=== PATIENT | female | born 1945 | race African-American/Black ===

== ENCOUNTER 2017-12-19 22:17 | Inpatient (IN) ==
[2017-12-19] MEDS ORDERED: PROPOFOL 1,000 MG/100 ML BOTTLE IV ONE (22:33)
[2017-12-19] MEDS ORDERED: FUROSEMIDE 100 MG/10 ML VIAL ONE (22:34)
[2017-12-19] MEDS ORDERED: FUROSEMIDE 100 MG/10 ML VIAL IV STA (22:37)
[2017-12-19] MEDS ORDERED: methylPREDNISolone SOD SUC 125 MG/2 ML VIAL IV STA (22:37)
[2017-12-19] MEDS ORDERED: MORPHINE 4 MG/1 ML VIAL IV STA (22:37)
[2017-12-19] MEDS ORDERED: ONDANSETRON 4 MG/2 ML VIAL IV STA (22:37)
[2017-12-19] MEDS ORDERED: NITROGLYCERIN 2% OINT 1 INCH/GM PACK TOP STA (22:37)
[2017-12-19] MEDS ORDERED: ALBUTEROL/IPRATROPIUM 3 ML NEB RESP TX STA (22:46)
[2017-12-19] MEDS ORDERED: ETOMIDATE 20 MG/10 ML VIAL IV ONE (22:54)
[2017-12-19] MEDS ORDERED: VECURONIUM 10 MG VIAL IV ONE (22:54)
[2017-12-19 23:00] LABS: ABG Base Excess -7.1 MMOL/L (-2.5-2.5); ABG HCO3 18.6 MMOL/L (20-26); ABG Oxygen Saturation 99.2 % (95-100); ABG PCO2 39.1 MM HG (35-48); ABG PH 7.293 (7.35-7.45); ABG TCO2 17.4 MMOL/L (23-27)
[2017-12-19] MEDS ORDERED: ALBUTEROL 2.5 MG/3 ML NEB RESP TX SCH (23:00)
[2017-12-19 23:09] LABS: Basophils % 0.2 % (0.0-0.8); Eosinophils % 0.2 % (0.00-10.9); Hematocrit 32.9 VOL% (35.7-47.0); Hemoglobin 10.2 GM/DL (12.0-16.0); Immature Granulocytes % 1.3 %; Immature Granulocytes Absolute 0.22 #; Lymphocytes # 0.8 10*3/uL (1.4-4.0); Lymphocytes % 4.6 % (21.3-54.2); Mean Corpuscular Hemoglobin 27 PG (27-34); Mean Platelet Volume 11.3 FL (9.6-12.0); Monocytes # 0.8 10*3/uL (0.11-0.8); Monocytes % 4.3 % (1.7-12.7); NRBC # 0.02 10*3/uL; Neutrophils # 15.4 10*3/uL (1.4-7.4); Neutrophils % 89.4 % (38.7-73.9); Platelet Count 224 T/CUMM (130-400); Red Blood Count 3.74 MC/CUMM (3.8-5.5); Red Cell Distribution Width 14.2 % (9.3-17.3); White Blood Count 17.3 T/CUMM (4-12)
[2017-12-19 23:17] LABS: PT Patient Result 10.5 SECS
[2017-12-19 23:24] LABS: Albumin 3.2 G/DL (3.4-5.0); Bilirubin,Total 0.7 MG/DL (0.2-1.0); Osmolality,Calculated 289.4 MOS/KG (273-304); Potassium 3.4 MMOL/L (3.5-5.1); Total Protein 6.9 G/DL (6.4-8.3)
[2017-12-19] MEDS ORDERED: cefTRIAXone 1,000 MG in SODIUM CHLORIDE 0.9% 100 ML IV STA (23:25)
[2017-12-19] MEDS ORDERED: ACETYLCYSTEINE 600 MG CAPSULE PO STA (23:36)
[2017-12-19] MEDS ORDERED: SODIUM BICARBONATE 50 MEQ/50 ML VIAL IV STA (23:36)
[2017-12-19 23:51] LABS: Lactic Acid 3.7 MMOL/L (0.4-2.0)
[2017-12-19 23:52] LABS: Apearance,Urine Slightly Hazy (Clear); Barbiturates Screen,Urine Negative (Negative); Benzodiazepines Screen,Urine Negative (Negative); Bilirubin,Urine Negative (Negative); Blood, Urine Negative (Negative); Cannabinoid Screen,Urine Negative (Negative); Glucose,Urine (UA) >=500 mg/dL (Negative); Granular Casts,Urine 18 /LPF (0-1); Ketones,Urine Negative (Negative); Nitrite,Urine Negative (Negative); Opiate Screen,Urine Negative (Negative); Phencyclidine Screen,Urine Negative (Negative); Protein,Urine >=500 MG/DL; RBC,Urine 7 /HPF (0-4); Squamous Epithelial Cell,Urine Occasional /HPF (0-10); Urine Color Yellow (Yellow); Urine Urobilinogen < 2.0 EU/DL (0.2-1.0); WBC,Urine 37 /HPF (0-6)
[2017-12-20] MEDS ORDERED: ENOXAPARIN 100 MG/ML SYRINGE SUBCUT STA (01:04)
[2017-12-20] MEDS ORDERED: NITROGLYCERIN 2% OINT 1 INCH/GM PACK TOP ONE (01:57)
[2017-12-20] MEDS: PIPERACILLIN/TAZOBACTAM 3,375 MG in SODIUM CHLORIDE 0.9% 100 ML IV SCH ×3 (02:12→17:09)
[2017-12-20] MEDS ORDERED: ONDANSETRON 4 MG/2 ML VIAL IV PRN (02:22)
[2017-12-20] MEDS ORDERED: ALBUTEROL 2.5 MG/3 ML NEB RESP TX PRN (02:22)
[2017-12-20] MEDS ORDERED: MORPHINE 4 MG/1 ML VIAL IV PRN (02:22)
[2017-12-20 02:24] LABS: Band Neutrophils 13 % (0-10); Lymphocytes 5 % (20-55); Platelet Estimate Normal; Polychromasia Few; Segmented Neutrophils 78 % (50-85); Total Cells Counted 100
[2017-12-20] MEDS ORDERED: VANCOMYCIN 1,000 MG VIAL ONE (02:39)
[2017-12-20] MEDS: VANCOMYCIN INJ 1,000 MG in SODIUM CHLORIDE 0.9% 250 ML IV SCH (03:02)
[2017-12-20] MEDS: PROPOFOL 1,000 MG/100 ML BOTTLE IV SCH ×3 (04:21→18:55)
[2017-12-20] MEDS: LEVOFLOXACIN INJ 750 MG in PREMIX 1 EACH IV SCH (04:30)
[2017-12-20] MEDS: ALBUTEROL/IPRATROPIUM 3 ML NEB RESP TX SCH ×3 (07:28→21:16)
[2017-12-20 08:00] LABS: Albumin 3.1 G/DL (3.4-5.0); Bilirubin,Total 0.7 MG/DL (0.2-1.0); Calcium 7.9 MG/DL (8.5-10.1); Osmolality,Calculated 285.4 MOS/KG (273-304); Potassium 3.6 MMOL/L (3.5-5.1); Total Protein 7.1 G/DL (6.4-8.3)
[2017-12-20] MEDS ORDERED: PIPERACILLIN/TAZOBACTAM 3,375 MG in SODIUM CHLORIDE 0.9% 100 ML IV SCH (08:30)
[2017-12-20 08:31] LABS: ABG Base Excess -0.1 MMOL/L (-2.5-2.5); ABG HCO3 24.3 MMOL/L (20-26); ABG Oxygen Saturation 99.4 % (95-100); ABG PCO2 30.1 MM HG (35-48); ABG PH 7.482 (7.35-7.45); ABG TCO2 20.1 MMOL/L (23-27)
[2017-12-20] MEDS: FUROSEMIDE 40 MG/4 ML VIAL IV SCH (09:34)
[2017-12-20] MEDS: PANTOPRAZOLE 40 MG VIAL IV SCH (09:34)
[2017-12-20] MEDS ORDERED: DEXTROSE 50% 25 GM/50 ML VIAL IV PRN (11:46)
[2017-12-20] MEDS ORDERED: GLUCAGON 1 MG VIAL IM PRN (11:46)
[2017-12-20 12:11] LABS: Eosinophils,Pleural Fluid 1 %; Lymphocytes,Pleural Fluid 31 %; Monocytes,Pleural Fluid 6 %; Neutrophils,Pleural Fluid 62 %
[2017-12-20 12:14] LABS: RBC,Pleural Fluid 259 T/CUMM
[2017-12-20] MEDS: INSULIN REGULAR 100 UNIT/ML SUBCUT SCH ×2 (12:19→18:08)
[2017-12-20] MEDS: ENOXAPARIN 40 MG/0.4 ML SYRINGE SUBCUT SCH (12:20)
[2017-12-20 13:10] LABS: Calcium 8.3 MG/DL (8.5-10.1); Osmolality,Calculated 285.4 MOS/KG (273-304); Potassium 4.2 MMOL/L (3.5-5.1)
[2017-12-20 14:06] LABS: Basophils % 0.1 % (0.0-0.8); Hematocrit 34.7 VOL% (35.7-47.0); Hemoglobin 11.3 GM/DL (12.0-16.0); Immature Granulocytes % 0.4 %; Immature Granulocytes Absolute 0.06 #; Lymphocytes % 6.8 % (21.3-54.2); Mean Corpuscular HGB Conc 32.6 GM/DL (32-36); Mean Corpuscular Hemoglobin 28 PG (27-34); Mean Corpuscular Volume 84.8 FL (87-102); Mean Platelet Volume 11.4 FL (9.6-12.0); Monocytes # 0.4 10*3/uL (0.11-0.8); Monocytes % 2.6 % (1.7-12.7); Neutrophils # 12.7 10*3/uL (1.4-7.4); Neutrophils % 90.1 % (38.7-73.9); Platelet Count 222 T/CUMM (130-400); Red Blood Count 4.09 MC/CUMM (3.8-5.5); Red Cell Distribution Width 14.1 % (9.3-17.3)
[2017-12-20] MEDS: POTASSIUM CHLORIDE RIDER 10 MEQ in PREMIX 1 EACH IV PRN ×2 (14:11→15:14)
[2017-12-20] MEDS: BIMATOPROST 0.01% OPH SOLN 2.5 ML BOTTLE BOTH EYES SCH (20:20)
[2017-12-21] MEDS: VANCOMYCIN INJ 1,000 MG in SODIUM CHLORIDE 0.9% 250 ML IV SCH ×2 (00:49→23:15)
[2017-12-21] MEDS: PROPOFOL 1,000 MG/100 ML BOTTLE IV SCH ×2 (00:50→07:00)
[2017-12-21] MEDS: ALBUTEROL/IPRATROPIUM 3 ML NEB RESP TX SCH ×4 (01:00→14:52)
[2017-12-21] MEDS: INSULIN REGULAR 100 UNIT/ML SUBCUT SCH ×5 (01:05→23:55)
[2017-12-21] MEDS: PIPERACILLIN/TAZOBACTAM 3,375 MG in SODIUM CHLORIDE 0.9% 100 ML IV SCH ×3 (01:50→17:24)
[2017-12-21 04:23] LABS: Basophils % 0.1 % (0.0-0.8); Hematocrit 28.4 VOL% (35.7-47.0); Hemoglobin 9.1 GM/DL (12.0-16.0); Immature Granulocytes % 0.6 %; Immature Granulocytes Absolute 0.07 #; Lymphocytes # 1.8 10*3/uL (1.4-4.0); Lymphocytes % 15.1 % (21.3-54.2); Mean Corpuscular Hemoglobin 27 PG (27-34); Mean Corpuscular Volume 84.5 FL (87-102); Monocytes # 0.7 10*3/uL (0.11-0.8); Monocytes % 6.1 % (1.7-12.7); Neutrophils # 9.1 10*3/uL (1.4-7.4); Neutrophils % 78.1 % (38.7-73.9); Platelet Count 200 T/CUMM (130-400); Red Blood Count 3.36 MC/CUMM (3.8-5.5); Red Cell Distribution Width 14.5 % (9.3-17.3); White Blood Count 11.7 T/CUMM (4-12)
[2017-12-21 04:35] LABS: ABG Base Excess 0.2 MMOL/L (-2.5-2.5); ABG HCO3 24.6 MMOL/L (20-26); ABG Oxygen Saturation 99.5 % (95-100); ABG PCO2 35.6 MM HG (35-48); ABG PH 7.438 (7.35-7.45); ABG TCO2 21.9 MMOL/L (23-27)
[2017-12-21 05:27] LABS: Calcium 7.6 MG/DL (8.5-10.1); Osmolality,Calculated 297.6 MOS/KG (273-304); Potassium 3.3 MMOL/L (3.5-5.1)
[2017-12-21 06:12] LABS: Prealbumin 12.4 MG/DL (20-40)
[2017-12-21] MEDS: POTASSIUM CHLORIDE 20 MEQ/15 ML UDCUP PER TUBE PRN ×3 (06:19→10:55)
[2017-12-21] MEDS: ENOXAPARIN 40 MG/0.4 ML SYRINGE SUBCUT SCH (08:20)
[2017-12-21] MEDS: FUROSEMIDE 40 MG/4 ML VIAL IV SCH (08:22)
[2017-12-21] MEDS: PANTOPRAZOLE 40 MG VIAL IV SCH (08:27)
[2017-12-21 08:53] LABS: ABG Base Excess 1.4 MMOL/L (-2.5-2.5); ABG HCO3 25.1 MMOL/L (20-26); ABG Oxygen Saturation 97.9 % (95-100); ABG PCO2 36.2 MM HG (35-48); ABG PH 7.458 (7.35-7.45); ABG PO2 116.7 MM HG (80-95); ABG TCO2 26.2 MMOL/L (23-27)
[2017-12-21 11:12] LABS: ABG Base Excess 2.9 MMOL/L (-2.5-2.5); ABG Oxygen Saturation 96.5 % (95-100); ABG PCO2 38.6 MM HG (35-48); ABG PH 7.452 (7.35-7.45); ABG PO2 85.5 MM HG (80-95); Allen Test Positive
[2017-12-21] MEDS ORDERED: BISACODYL 5 MG TABLET PO PRN (15:44)
[2017-12-21] MEDS ORDERED: ATENOLOL 50 MG TABLET PO ONE (16:36)
[2017-12-21] MEDS: BIMATOPROST 0.01% OPH SOLN 2.5 ML BOTTLE BOTH EYES SCH (21:05)
[2017-12-21] MEDS: hydrALAZINE 25 MG TABLET PO SCH (21:05)
[2017-12-21] MEDS: LOVASTATIN 20 MG TABLET PO SCH (21:06)
[2017-12-21] MEDS: NEBIVOLOL 5 MG TABLET PO SCH (21:06)
[2017-12-22] MEDS: ALBUTEROL/IPRATROPIUM 3 ML NEB RESP TX SCH ×4 (00:11→19:43)
[2017-12-22] MEDS: PIPERACILLIN/TAZOBACTAM 3,375 MG in SODIUM CHLORIDE 0.9% 100 ML IV SCH ×3 (01:00→16:20)
[2017-12-22 04:28] LABS: Calcium 8.7 MG/DL (8.5-10.1); Potassium 4.4 MMOL/L (3.5-5.1)
[2017-12-22] MEDS: PROPOFOL 1,000 MG/100 ML BOTTLE IV SCH (05:12)
[2017-12-22] MEDS: LEVOFLOXACIN INJ 750 MG in PREMIX 1 EACH IV SCH (05:13)
[2017-12-22] MEDS: INSULIN REGULAR 100 UNIT/ML SUBCUT SCH ×5 (05:15→20:47)
[2017-12-22 05:40] LABS: Basophils % 0.3 % (0.0-0.8); Eosinophils # 0.2 10*3/uL (0.0-0.87); Eosinophils % 1.2 % (0.00-10.9); Hemoglobin 10.8 GM/DL (12.0-16.0); Immature Granulocytes % 0.6 %; Immature Granulocytes Absolute 0.08 #; Lymphocytes # 2.4 10*3/uL (1.4-4.0); Lymphocytes % 17.3 % (21.3-54.2); Mean Corpuscular HGB Conc 31.8 GM/DL (32-36); Mean Corpuscular Hemoglobin 27 PG (27-34); Mean Corpuscular Volume 85.9 FL (87-102); Mean Platelet Volume 11.3 FL (9.6-12.0); Monocytes % 7.5 % (1.7-12.7); Neutrophils # 10.1 10*3/uL (1.4-7.4); Neutrophils % 73.1 % (38.7-73.9); Platelet Count 262 T/CUMM (130-400); Red Blood Count 3.96 MC/CUMM (3.8-5.5); Red Cell Distribution Width 14.7 % (9.3-17.3); White Blood Count 13.8 T/CUMM (4-12)
[2017-12-22] MEDS ORDERED: ATENOLOL 50 MG TABLET PO SCH (09:00)
[2017-12-22] MEDS: ASPIRIN EC 81 MG TABLET PO SCH (09:47)
[2017-12-22] MEDS: hydrALAZINE 25 MG TABLET PO SCH ×3 (09:47→20:46)
[2017-12-22] MEDS: MULTIVITAMIN (CENTRUM) TABLET PO SCH (09:47)
[2017-12-22] MEDS: NEBIVOLOL 5 MG TABLET PO SCH (09:47)
[2017-12-22] MEDS: PANTOPRAZOLE 40 MG VIAL IV SCH (09:48)
[2017-12-22] MEDS: FUROSEMIDE 40 MG/4 ML VIAL IV SCH ×2 (09:52→15:10)
[2017-12-22] MEDS: ENOXAPARIN 40 MG/0.4 ML SYRINGE SUBCUT SCH (09:54)
[2017-12-22] MEDS: BIMATOPROST 0.01% OPH SOLN 2.5 ML BOTTLE BOTH EYES SCH (20:47)
[2017-12-22] MEDS: NEBIVOLOL 10 MG TABLET PO SCH (20:47)
[2017-12-22] MEDS: LOVASTATIN 20 MG TABLET PO SCH (20:47)
[2017-12-22] MEDS: amLODIPine 2.5 MG TABLET PO SCH (20:47)
[2017-12-22] MEDS ORDERED: BENZOCAINE/MENTHOL LOZENGE 18/BOX PO PRN (21:17)
[2017-12-23] MEDS: VANCOMYCIN INJ 1,000 MG in SODIUM CHLORIDE 0.9% 250 ML IV SCH (00:27)
[2017-12-23] MEDS: PIPERACILLIN/TAZOBACTAM 3,375 MG in SODIUM CHLORIDE 0.9% 100 ML IV SCH (00:28)
[2017-12-23] MEDS: ALBUTEROL/IPRATROPIUM 3 ML NEB RESP TX SCH ×5 (00:39→23:55)
[2017-12-23 04:17] LABS: Basophils % 0.2 % (0.0-0.8); Eosinophils # 0.2 10*3/uL (0.0-0.87); Eosinophils % 1.8 % (0.00-10.9); Hematocrit 37.1 VOL% (35.7-47.0); Hemoglobin 11.8 GM/DL (12.0-16.0); Immature Granulocytes % 0.6 %; Immature Granulocytes Absolute 0.07 #; Lymphocytes # 2.7 10*3/uL (1.4-4.0); Lymphocytes % 21.5 % (21.3-54.2); Mean Corpuscular HGB Conc 31.8 GM/DL (32-36); Mean Corpuscular Hemoglobin 27 PG (27-34); Mean Corpuscular Volume 85.3 FL (87-102); Mean Platelet Volume 11.2 FL (9.6-12.0); NRBC # 0.02 10*3/uL; Neutrophils # 8.4 10*3/uL (1.4-7.4); Neutrophils % 67.9 % (38.7-73.9); Platelet Count 318 T/CUMM (130-400); Red Blood Count 4.35 MC/CUMM (3.8-5.5); Red Cell Distribution Width 14.3 % (9.3-17.3); White Blood Count 12.4 T/CUMM (4-12)
[2017-12-23 04:40] LABS: Calcium 8.7 MG/DL (8.5-10.1); Osmolality,Calculated 282.4 MOS/KG (273-304); Potassium 3.7 MMOL/L (3.5-5.1)
[2017-12-23] MEDS: PROPOFOL 1,000 MG/100 ML BOTTLE IV SCH (07:01)
[2017-12-23] MEDS: guaiFENesin/DM ER 600-30 MG TABLET PO SCH ×2 (08:40→21:00)
[2017-12-23] MEDS: NEBIVOLOL 10 MG TABLET PO SCH ×2 (08:40→21:00)
[2017-12-23] MEDS: MULTIVITAMIN (CENTRUM) TABLET PO SCH (08:40)
[2017-12-23] MEDS: amLODIPine 2.5 MG TABLET PO SCH ×2 (08:41→21:00)
[2017-12-23] MEDS: ENOXAPARIN 40 MG/0.4 ML SYRINGE SUBCUT SCH (08:41)
[2017-12-23] MEDS: FUROSEMIDE 40 MG/4 ML VIAL IV SCH ×2 (08:41→15:05)
[2017-12-23] MEDS: ASPIRIN EC 81 MG TABLET PO SCH (08:41)
[2017-12-23] MEDS: hydrALAZINE 25 MG TABLET PO SCH ×3 (08:41→21:00)
[2017-12-23] MEDS: PANTOPRAZOLE 40 MG TABLET PO SCH (08:51)
[2017-12-23] MEDS: LEVOFLOXACIN 500 MG TABLET PO SCH (08:51)
[2017-12-23] MEDS: INSULIN REGULAR 100 UNIT/ML SUBCUT SCH ×4 (08:56→21:00)
[2017-12-23] MEDS: LOVASTATIN 20 MG TABLET PO SCH (21:00)
[2017-12-23] MEDS: BIMATOPROST 0.01% OPH SOLN 2.5 ML BOTTLE BOTH EYES SCH (21:01)
[2017-12-24] MEDS: ALBUTEROL/IPRATROPIUM 3 ML NEB RESP TX SCH ×3 (07:44→20:13)
[2017-12-24] MEDS: LEVOFLOXACIN 500 MG TABLET PO SCH (08:24)
[2017-12-24] MEDS: amLODIPine 2.5 MG TABLET PO SCH ×2 (08:24→20:41)
[2017-12-24] MEDS: ASPIRIN EC 81 MG TABLET PO SCH (08:24)
[2017-12-24] MEDS: guaiFENesin/DM ER 600-30 MG TABLET PO SCH ×2 (08:24→20:40)
[2017-12-24] MEDS: PANTOPRAZOLE 40 MG TABLET PO SCH (08:24)
[2017-12-24] MEDS: hydrALAZINE 25 MG TABLET PO SCH ×3 (08:24→20:41)
[2017-12-24] MEDS: MULTIVITAMIN (CENTRUM) TABLET PO SCH (08:25)
[2017-12-24] MEDS: INSULIN REGULAR 100 UNIT/ML SUBCUT SCH ×4 (08:25→20:41)
[2017-12-24] MEDS: FUROSEMIDE 40 MG/4 ML VIAL IV SCH ×2 (08:25→15:41)
[2017-12-24] MEDS: NEBIVOLOL 10 MG TABLET PO SCH ×2 (08:25→20:41)
[2017-12-24] MEDS: ENOXAPARIN 40 MG/0.4 ML SYRINGE SUBCUT SCH (08:29)
[2017-12-24] MEDS: BIMATOPROST 0.01% OPH SOLN 2.5 ML BOTTLE BOTH EYES SCH (20:41)
[2017-12-24] MEDS: LOVASTATIN 20 MG TABLET PO SCH (20:41)
[2017-12-25] MEDS: ALBUTEROL/IPRATROPIUM 3 ML NEB RESP TX SCH ×3 (00:14→13:55)
[2017-12-25] MEDS: INSULIN REGULAR 100 UNIT/ML SUBCUT SCH ×2 (08:22→12:10)
[2017-12-25] MEDS: MULTIVITAMIN (CENTRUM) TABLET PO SCH (08:23)
[2017-12-25] MEDS: hydrALAZINE 25 MG TABLET PO SCH ×2 (08:23→14:57)
[2017-12-25] MEDS: LEVOFLOXACIN 500 MG TABLET PO SCH (08:23)
[2017-12-25] MEDS: ASPIRIN EC 81 MG TABLET PO SCH (08:23)
[2017-12-25] MEDS: guaiFENesin/DM ER 600-30 MG TABLET PO SCH (08:23)
[2017-12-25] MEDS: NEBIVOLOL 10 MG TABLET PO SCH (08:23)
[2017-12-25] MEDS: PANTOPRAZOLE 40 MG TABLET PO SCH (08:24)
[2017-12-25] MEDS: ENOXAPARIN 40 MG/0.4 ML SYRINGE SUBCUT SCH (08:24)
[2017-12-25] MEDS: amLODIPine 2.5 MG TABLET PO SCH (08:24)
[2017-12-25] MEDS: FUROSEMIDE 40 MG/4 ML VIAL IV SCH ×2 (08:24→14:59)
[2017-12-25 11:39] VITALS: BP 137/65
== END 2017-12-25 15:53 | disposition home or self-care (01) | DRG 208 ==
LOC: EDUNIT# → N.ED 22:17 → SUATTDRO 12-20 02:22 → N.EDINP 12-20 02:22 → N.CC 12-20 03:04 → N.TELEN 12-22 22:20
PROVIDERS: ADMIT Internal Medicine; ATTEND Internal Medicine

== ENCOUNTER 2021-12-31 18:14 | Observation (INO) ==
[2021-12-31] MEDS ORDERED: ONDANSETRON 4 MG/2 ML VIAL IV STA (20:01)
[2021-12-31] MEDS ORDERED: MECLIZINE 25 MG TABLET PO STA (20:01)
[2021-12-31] MEDS ORDERED: hydrALAZINE 20 MG/1 ML VIAL IV STA ×2 (20:01→21:10)
[2021-12-31 20:24] LABS: Bilirubin,Urine Negative (Negative); Blood, Urine Negative (Negative); Glucose,Urine (UA) Negative (Negative); Ketones,Urine Negative (Negative); Nitrite,Urine Negative (Negative); Protein,Urine Negative (Negative); Urine Appearance Clear (Clear); Urine Color Yellow (Yellow); Urine Urobilinogen 0.2 eU/dL (<2.0); Urine pH 6.5 (4.5-8.0)
[2021-12-31 20:29] LABS: Bacteria,Urine Occasional /HPF (Few); RBC,Urine 1 /HPF (0-4); Squamous Epithelial Cell,Urine Occasional /HPF (0-10)
[2021-12-31 20:48] LABS: Barbiturates Screen,Urine Negative (Negative); Benzodiazepines Screen,Urine Negative (Negative); Cannabinoid Screen,Urine Negative (Negative); Opiate Screen,Urine Negative (Negative); Phencyclidine Screen,Urine Negative (Negative)
[2021-12-31 20:54] LABS: Albumin 4.3 G/DL (3.4-5.0); Bilirubin,Total 0.5 MG/DL (0.20-1.00); Calcium 9.6 MG/DL (8.5-10.1); Osmolality,Calculated 280.3 MOS/KG (273-304); Total Protein 7.8 G/DL (6.4-8.2)
[2021-12-31 20:58] LABS: Basophils % 0.4 % (0.0-0.8); Eosinophils # 0.1 10*3/uL (0.0-0.87); Hematocrit 45.8 VOL% (35.7-47.0); Immature Granulocytes % 0.1 %; Immature Granulocytes Absolute 0.01 #; Lymphocytes # 3.3 10*3/uL (1.4-4.0); Lymphocytes % 42.5 % (21.3-54.2); Mean Corpuscular HGB Conc 30.6 GM/DL (32-36); Mean Corpuscular Volume 81.9 FL (87-102); Mean Platelet Volume 10.7 FL (9.6-12.0); Monocytes # 0.8 10*3/uL (0.11-0.8); Monocytes % 9.8 % (1.7-12.7); Neutrophils % 46.2 % (38.7-73.9); Platelet Count 213 T/CUMM (130-400); Red Blood Count 5.59 MC/CUMM (3.8-5.5); White Blood Count 7.8 T/CUMM (4-12)
[2021-12-31] MEDS ORDERED: MAGNESIUM SULF RIDER 2 GM/50 ML PREMIX IV PRN (22:03)
[2021-12-31] MEDS ORDERED: hydrALAZINE 20 MG/1 ML VIAL IV PRN (22:03)
[2021-12-31] MEDS ORDERED: ONDANSETRON 4 MG/2 ML VIAL IV PRN (22:03)
[2021-12-31] MEDS ORDERED: SIMETHICONE CHEW 125 MG TABLET PO PRN (22:03)
[2021-12-31] MEDS ORDERED: POTASSIUM CHLORIDE 20 MEQ TABLET PO PRN (22:03)
[2021-12-31] MEDS ORDERED: MAGNESIUM SULF RIDER 4 GM/100 ML PREMIX IV PRN (22:03)
[2021-12-31] MEDS ORDERED: GLUCAGON 1 MG VIAL IM PRN (22:03)
[2021-12-31] MEDS ORDERED: POTASSIUM CHLORIDE RIDER 10 MEQ/100 ML PREMIX IV PRN (22:03)
[2021-12-31] MEDS ORDERED: ACETAMINOPHEN 325 MG TABLET PO PRN ×2 (22:03→22:29)
[2021-12-31] MEDS ORDERED: DEXTROSE 10% 250 ML BAG IV PRN (22:24)
[2021-12-31] MEDS ORDERED: BIMATOPROST 0.01% OPH SOLN 2.5 ML BOTTLE BOTH EYES SCH (22:30)
[2021-12-31] MEDS ORDERED: ROSUVASTATIN 20 MG TABLET PO SCH (22:30)
[2021-12-31] MEDS: amLODIPine 10 MG TABLET PO SCH (23:05)
[2022-01-01] MEDS: COLCHICINE 0.6 MG CAPSULE PO SCH ×2 (00:21→09:08)
[2022-01-01] MEDS ORDERED: diphenhydrAMINE CAP 25 MG CAPSULE PO ONE (00:45)
[2022-01-01 07:12] LABS: Basophils % 0.4 % (0.0-0.8); Eosinophils # 0.1 10*3/uL (0.0-0.87); Eosinophils % 0.9 % (0.00-10.9); Hematocrit 44.4 VOL% (35.7-47.0); Immature Granulocytes % 0.2 %; Immature Granulocytes Absolute 0.02 #; Lymphocytes # 3.3 10*3/uL (1.4-4.0); Lymphocytes % 38.3 % (21.3-54.2); Mean Corpuscular HGB Conc 30.6 GM/DL (32-36); Mean Corpuscular Volume 82.5 FL (87-102); Mean Platelet Volume 11.5 FL (9.6-12.0); Monocytes # 0.8 10*3/uL (0.11-0.8); Monocytes % 9.9 % (1.7-12.7); Neutrophils % 50.3 % (38.7-73.9); Platelet Count 206 T/CUMM (130-400); Red Blood Count 5.38 MC/CUMM (3.8-5.5); Red Cell Distribution Width 18.4 % (9.3-17.3); White Blood Count 8.5 T/CUMM (4-12)
[2022-01-01 07:14] LABS: Calcium 9.7 MG/DL (8.5-10.1); Potassium 3.8 MMOL/L (3.5-5.1); Risk Ratio 2.53; Thyroid Stimulating Hormone 4.89 uIU/ml (0.358-3.74); VLDL Cholesterol 20.6 MG/DL
[2022-01-01 07:16] LABS: Hemoglobin 13.6 GM/DL (12.0-16.0)
[2022-01-01 08:14] LABS: Free T4 (Free Thyroxine) 0.87 NG/DL (0.76-1.46)
[2022-01-01] MEDS ORDERED: ASPIRIN EC 81 MG TABLET PO SCH (09:00)
[2022-01-01] MEDS ORDERED: NEBIVOLOL 5 MG TABLET PO SCH (09:00)
[2022-01-01] MEDS ORDERED: CETIRIZINE 10 MG TABLET PO SCH (09:00)
[2022-01-01] MEDS ORDERED: MULTIVITAMIN (CENTRUM) TABLET PO SCH (09:00)
[2022-01-01] MEDS ORDERED: ENOXAPARIN 40 MG/0.4 ML SYRINGE SUBCUT SCH (09:00)
[2022-01-01] MEDS ORDERED: DOCUSATE SODIUM 100 MG CAPSULE PO SCH (09:00)
[2022-01-01] MEDS ORDERED: PANTOPRAZOLE 40 MG TABLET PO SCH (09:00)
[2022-01-01] MEDS: amLODIPine 10 MG TABLET PO SCH (09:08)
[2022-01-01] MEDS ORDERED: LISINOPRIL/HCTZ 20-25 MG TABLET PO SCH (13:30)
[2022-01-01 16:50] VITALS: BP 122/69
[2022-01-01] MEDS ORDERED: EZETIMIBE 10 MG TABLET PO SCH (21:00)
[2022-01-02] MEDS ORDERED: NEBIVOLOL 10 MG TABLET PO SCH (09:00)
== END 2022-01-01 17:23 | disposition home health service (06) ==
LOC: N.ED 18:14 → N.TELES 18:14 → SUATTDRO 22:03 → N.TELES 23:21
PROVIDERS: ADMIT Internal Medicine; ATTEND Internal Medicine